=== PATIENT | male | born 1995 ===

== ENCOUNTER 2019-04-04 22:40 | Emergency (ER) | payer BC ==
[~2019-04-04] VITALS: Ht 165.1 cm; Wt 108.9 kg
[2019-04-05] MEDS ORDERED: CIPRO500 MG PO (06:02)
[2019-04-05] MEDS ORDERED: LEVSIN/SL0.125 MG SL (06:02)
== END 2019-04-05 06:21 | disposition home or self-care (01) ==
LOC: ER 22:40
DX: K52.89 Other specified noninfective gastroenteritis and colitis (principal); I16.0 Hypertensive urgency; I10 Essential (primary) hypertension; E87.6 Hypokalemia